=== PATIENT | male | born 1995 | race Caucasian/White ===

== ENCOUNTER 2018-10-26 08:13 | Emergency (ER) | payer BC ==
[~2018-10-26] VITALS: Ht 182.8 cm; Wt 112.5 kg
[~2018-10-26 08:13] MED LIST: BACTRIM DS 8001 TAB PO; D-1000 185 MG-11 TAB PO; KEFLEX500 M1 PO; LISINOPRIL10 M1 PO; MOTRIN400 MG PO; NORCO 5-325 TA1 EACH PO
[2018-10-26 08:14] VITALS: BP 138/81
[2018-10-26] MEDS ORDERED: CLEOCIN HCL300 MG PO (09:08)
[2018-10-26] MEDS ORDERED: PENICILLIN VK500 MG PO (09:33)
== END 2018-10-26 09:11 | disposition home or self-care (01) ==
LOC: ED 08:13
DX: K04.7 Periapical abscess without sinus (principal); K02.9 Dental caries, unspecified; I10 Essential (primary) hypertension; E66.9 Obesity, unspecified; F17.200 Nicotine dependence, unspecified, uncomplicated; Z88.1 Allergy status to other antibiotic agents; Z79.899 Other long term (current) drug therapy; Z68.30 Body mass index [BMI] 30.0-30.9, adult